=== PATIENT | male | born 1965 | race Hispanic/Latino ===

== ENCOUNTER 2023-06-18 08:00 | Day surgery (SDC) | payer OTHER ==
[2023-06-16 10:11] LABS: BASOPHILS # (AUTO) 0.03 K/uL (0.00-0.20); BASOPHILS % (AUTO) 0.5 % (0.0-5.0); EOSINOPHILS # (AUTO) 0.17 K/uL (0.00-0.70); EOSINOPHILS % (AUTO) 2.9 % (0.0-8.0); HEMATOCRIT 45.1 % (36-48); IMMATURE GRANULOCYTE ABSOLUTE 0.02 K/uL (0-1); LYMPHOCYTES # (AUTO) 1.8 K/uL (1.0-4.8); LYMPHOCYTES % (AUTO) 30.1 % (21.0-51.0); MEAN CORPUSCULAR HEMOGLOBIN 30.7 pg (27.0-33.0); MEAN CORPUSCULAR HGB CONC 33.9 g/dL (32.0-36.0); MEAN CORPUSCULAR VOLUME 90.6 fL (79-99); MONOCYTES # (AUTO) 0.6 K/uL (0.1-1.0); MONOCYTES % (AUTO) 10.1 % (3.0-13.0); NEUTROPHILS # (AUTO) 3.3 K/uL (1.8-7.7); NEUTROPHILS % (AUTO) 56.1 % (40.0-77.0); PLATELET COUNT (AUTO) 158 K/uL (130-400); RED BLOOD CELL COUNT(AUTO) 4.98 MIL/uL (4.00-5.50); RED CELL DISTRIBUTION WIDTH 12.4 % (11.0-15.5); WHITE BLOOD COUNT (AUTO) 5.9 K/uL (4.8-10.8)
[2023-06-16 10:14] VITALS: BP 134/77; PULSE 56; RESP 20
[2023-06-18] VITALS (17 sets, daily range): BP systolic 114–137; BP diastolic 69–86; PULSE 52–64; RESP 12–20
[~2023-06-18] VITALS: Ht 170.2 cm; Wt 92.4 kg
[~2023-06-18 08:00] MED LIST: AUGMENTIN PO; BENA1TAB18 PO; EZET-86 PO; FISH1CAP27 PO; TAMS-1 PO
[2023-06-18] MEDS ORDERED: LACTATED RINGERS 1000ML 1,000 ML IV ONE (08:52)
[2023-06-18] MEDS: CEFTRIAXONE 1G VIAL ONE ×2 (09:06→10:51)
[2023-06-18] MEDS ORDERED: FENTANYL CITRATE PF 50 MCG/1 ML 2ML VIAL ONE (09:44)
[2023-06-18] MEDS ORDERED: MIDAZOLAM HCL 1 MG/ML 2ML VIAL ONE (09:44)
[2023-06-18] MEDS ORDERED: LIDOCAINE PF 100MG/5ML (2%) SYRINGE 5ML ONE (09:44)
[2023-06-18] MEDS ORDERED: PROPOFOL 10 MG/ML 20ML VIAL IV ONE (09:44)
[2023-06-18 10:36] LABS: POTASSIUM 3.7 mmol/L (3.5-5.1)
[2023-06-18] MEDS ORDERED: ONDANSETRON 4MG INJ ONE (10:38)
[2023-06-18] MEDS ORDERED: LIDOCAINE HCL 2% PF 20 ML JEL DISP.SYRIN MM ONE (11:05)
== END 2023-06-18 13:00 | disposition home or self-care (01) ==
LOC: DAH 08:00 → EDSEX 10:00 → DAH 13:00
PROVIDERS: ATTEND Urology
DX: R97.20 Elevated prostate specific antigen [PSA] (principal); Z20.822 Contact with and (suspected) exposure to COVID-19; N40.1 Benign prostatic hyperplasia with lower urinary tract symptoms; N41.1 Chronic prostatitis; R35.1 Nocturia; I10 Essential (primary) hypertension; Z98.890 Other specified postprocedural states; Z80.42 Family history of malignant neoplasm of prostate; Z79.899 Other long term (current) drug therapy; Z82.49 Family history of ischemic heart disease and other diseases of the circulatory system
CPT/HCPCS: 85025; 87426; 36415 ×2; 93005; 55700; 80048; 88305; 76872; A6260; A4663; J7030; J7120; J3010; J2001; J0696; J2250; J2704; J2405; A4215 ×2; A4223; A4222; A4221; J3490